=== PATIENT | female | born 1980 ===

== ENCOUNTER 2019-08-14 01:36 | Emergency (ER) | payer SELFPAY ==
[~2019-08-14] VITALS: Ht 152.4 cm; Wt 53.6 kg
--- NOTE | 2019-08-14 03:01 | NUR ---
Pt poor historian. Pt stated Dr. Yanez at [facility] removed her left breast. A call to [facility] revealed pt hasn't been seen at [facility] since [address] Yanez hasn't been at that hospital, "quite a while." Pt also stated that she has been in [place] for 3 days and came over from [place].
[2019-08-14] MEDS ORDERED: proparacaine 0.5% ophthalmic drops 15ml EACHEYE ONE (03:05)
[2019-08-14] MEDS ORDERED: ciprofloxacin 0.3% 2.5ml ophthalmic solution RIGHTEYE ONE (03:05)
[2019-08-14 03:16] LABS: URINE AMPHETAMINE SCREEN NEGATIVE (Neg); URINE BARBITUATE SCREEN NEGATIVE (Neg); URINE BENZODIAZEPINES SCREEN NEGATIVE (Neg); URINE CANNABINOID SCREEN NEGATIVE (Neg); URINE COCAINE SCREEN NEGATIVE (Neg); URINE METHADONE SCREEN NEGATIVE (Neg); URINE OPIATE SCREEN NEGATIVE (Neg); URINE PHENCYCLIDINE SCREEN NEGATIVE (Neg)
[2019-08-14] MEDS ORDERED: naproxen 500mg tablet PO ONE (03:50)
[2019-08-14] MEDS ORDERED: ASPI-1265 PO (04:34)
[2019-08-14 04:35] VITALS: BP 111/75
[2019-08-14] MEDS ORDERED: aspirin 81mg tab.chew PO ONE ×2 (04:35→04:45)
== END 2019-08-14 05:12 | disposition home or self-care (01) ==
LOC: ER 01:37
DX: C78.00 Secondary malignant neoplasm of unspecified lung (principal); C78.7 Secondary malignant neoplasm of liver and intrahepatic bile duct; C50.912 Malignant neoplasm of unspecified site of left female breast; R05 Cough; R07.89 Other chest pain; F32.9 Major depressive disorder, single episode, unspecified; Z98.890 Other specified postprocedural states; Z87.891 Personal history of nicotine dependence; Z59.0 Homelessness; Z56.0 Unemployment, unspecified; Z79.82 Long term (current) use of aspirin
CPT/HCPCS: 71045; 71250; 80305; 93005; 99285